=== PATIENT | female | born 1980 | race Caucasian/White ===

== ENCOUNTER 2017-08-04 17:07 | Emergency (ER) | payer MEDICAID ==
[~2017-08-04] VITALS: Ht 172.7 cm; Wt 122.0 kg
[~2017-08-04 17:07] MED LIST: CLON-528 PO; HYDR-565 PO; LITH600C PO; ONDA4TAB59 PO; ONDA8TAB9 PO
[2017-08-04 17:49] LABS: BASOPHILS # (AUTO) 0.2 X10'3 (0-0.2); EOSINOPHILS # (AUTO) 0.3 X10'3 (0-0.9); EOSINOPHILS % (AUTO) 2.2 % (0-6); HEMATOCRIT 40.6 % (35.0-45.0); HEMOGLOBIN 13.9 g/dl (12.0-16.0); LYMPHOCYTES # (AUTO) 3.6 X10'3 (1.1-4.8); LYMPHOCYTES % (AUTO) 24.3 % (21-51); MEAN CORPUSCULAR HEMOGLOBIN 30.4 PG (27.0-31.0); MEAN CORPUSCULAR HGB CONC 34.2 % (33.0-36.5); MEAN CORPUSCULAR VOLUME 88.9 FL (78-98); MEAN PLATELET VOLUME 8.2 FL (7.4-10.4); MONOCYTES # (AUTO) 0.8 X10'3 (0-0.9); MONOCYTES % (AUTO) 5.1 % (2-12); NEUTROPHILS # (AUTO) 9.8 X10'3 (1.8-7.7); NEUTROPHILS % (AUTO) 67.4 % (42-75); PLATELET COUNT 331 X10'3 (140-440); RED BLOOD COUNT 4.57 X10'6 (4.20-5.60); RED CELL DISTRIBUTION WIDTH 14.3 % (11.5-14.5); WHITE BLOOD COUNT 14.6 X10'3 (4.5-11.0)
[2017-08-04 17:51] LABS: PROTHROMBIN TIME 9.9 SECONDS (9.0-12.0)
[2017-08-04 17:59] LABS: ALANINE AMINOTRANSFERASE 23 U/L (12-78); ALBUMIN 2.3 G/DL (3.4-5.0); ALBUMIN/GLOBULIN RATIO 0.4 (1.1-1.5); ALKALINE PHOSPHATASE 95 IU/L (46-116); ANION GAP 10 (8-16); ASPARTATE AMINO TRANSFERASE 15 U/L (10-37); BILIRUBIN,TOTAL 0.2 MG/DL (0.1-1.0); BLOOD UREA NITROGEN 11 MG/DL (7-18); BUN/CREATININE RATIO 12.9 (6.6-38.0); CHLORIDE 104 MMOL/L (99-107); CREATININE 0.85 MG/DL (0.40-0.90); GLUCOSE 88 MG/DL (70-104); SODIUM 139 MMOL/L (135-145); TOTAL CARBON DIOXIDE 24.8 MMOL/L (24-32); TOTAL PROTEIN 7.5 G/DL (6.4-8.2); eGFR 76 ML/MIN
[2017-08-04] MEDS ORDERED: normal saline 1000ml 1,000 ML IVB ONE (20:11)
[2017-08-04] MEDS ORDERED: ondansetron/PF 4mg/2ml inj IV ONE ×2 (20:15→23:30)
[2017-08-04] MEDS ORDERED: ketorolac trometh. 30mg/ml inj. IV ONE (20:15)
[2017-08-04] MEDS ORDERED: fentaNYL/PF 50MCG/1 ML 2ML syringe IV ONE (20:45)
[2017-08-04 21:39] LABS: CLARITY,URINE Clear (Clear); COLOR,URINE Yellow (Yellow); GLUCOSE, URINE Negative (Neg); KETONES,URINE Negative (Neg); LEUKOCYTE ESTERASE ,URINE Negative (Neg); NITRITES, URINE Negative (Neg); OCCULT BLOOD,URINE Negative (Neg); PH,URINE 5.5 (4.8-8.0); PROTEIN,URINE Negative (Neg)
[2017-08-04 21:40] LABS: UA COLLECTION TYPE CLN CATCH MIDSTREAM
[2017-08-04 22:31] VITALS: BP 117/69
[2017-08-04] MEDS ORDERED: HYDROcodone/acetaminophen 10/325mg tab PO ONE (23:05)
[2017-08-04] MEDS ORDERED: HYDR-565 PO (23:08)
== END 2017-08-04 23:41 | disposition home or self-care (01) ==
LOC: ER 17:08
DX: R10.84 Generalized abdominal pain (principal); R11.2 Nausea with vomiting, unspecified; K21.9 Gastro-esophageal reflux disease without esophagitis; Z90.49 Acquired absence of other specified parts of digestive tract; Z98.890 Other specified postprocedural states; Z88.8 Allergy status to other drugs, medicaments and biological substances; Z79.899 Other long term (current) drug therapy
CPT/HCPCS: 36415; 74176; 80053; 81003; 85025; 85610; 93005; 96361; 96374; 96375; 96376; 99285; J1885; J2405; J3010; J7030

== ENCOUNTER 2018-01-08 01:32 | Emergency (ER) | payer MEDICAID ==
[~2018-01-08] VITALS: Ht 172.7 cm; Wt 127.0 kg
[~2018-01-08 01:32] MED LIST changes: +HYDR-4353 PO; -HYDR-565 PO
[2018-01-08 01:43] VITALS: BP 145/94
[2018-01-08] MEDS ORDERED: SULF1TAB49 PO (03:02)
[2018-01-08] MEDS ORDERED: HYDR-4383 PO (03:04)
== END 2018-01-08 03:22 | disposition home or self-care (01) ==
LOC: ER 01:33
DX: N76.4 Abscess of vulva (principal); K21.9 Gastro-esophageal reflux disease without esophagitis; Z90.49 Acquired absence of other specified parts of digestive tract; Z90.89 Acquired absence of other organs; Z88.1 Allergy status to other antibiotic agents; Z79.899 Other long term (current) drug therapy
CPT/HCPCS: 56405; 99284

== ENCOUNTER 2018-04-13 19:50 | Inpatient (IN) | payer MEDICAID ==
[~2018-04-13] VITALS: Ht 172.7 cm; Wt 125.0 kg
[~2018-04-13 19:50] MED LIST changes: +HYDR-4383 PO
[2018-04-13 21:22] LABS: ALANINE AMINOTRANSFERASE 21 U/L (12-78); ALBUMIN 3.2 G/DL (3.4-5.0); ALBUMIN/GLOBULIN RATIO 0.8 (1.1-1.5); ALKALINE PHOSPHATASE 86 IU/L (46-116); ANION GAP 9 (8-16); ASPARTATE AMINO TRANSFERASE 14 U/L (10-37); BILIRUBIN,TOTAL 0.2 MG/DL (0.1-1.0); BLOOD UREA NITROGEN 12 MG/DL (7-18); BUN/CREATININE RATIO 16.7 (6.6-38.0); CALCIUM 8.9 MG/DL (8.5-10.1); CHLORIDE 104 MMOL/L (99-107); CREATININE 0.72 MG/DL (0.40-0.90); GLUCOSE 91 MG/DL (70-104); POTASSIUM 3.9 MMOL/L (3.5-5.1); SODIUM 137 MMOL/L (135-145); TOTAL CARBON DIOXIDE 23.8 MMOL/L (24-32); TOTAL PROTEIN 7.1 G/DL (6.4-8.2); eGFR > 90 ML/MIN
[2018-04-13 21:29] LABS: BASOPHILS # (AUTO) 0.1 X10'3 (0-0.2); BASOPHILS % (AUTO) 0.9 % (0-1); EOSINOPHILS # (AUTO) 0.3 X10'3 (0-0.9); EOSINOPHILS % (AUTO) 2.1 % (0-6); HEMATOCRIT 37.9 % (35.0-45.0); HEMOGLOBIN 12.4 g/dl (12.0-16.0); LYMPHOCYTES # (AUTO) 2.8 X10'3 (1.1-4.8); LYMPHOCYTES % (AUTO) 18.7 % (21-51); MEAN CORPUSCULAR HEMOGLOBIN 28.8 PG (27.0-31.0); MEAN CORPUSCULAR HGB CONC 32.8 g/dL (33.0-36.5); MEAN CORPUSCULAR VOLUME 87.9 FL (78-98); MEAN PLATELET VOLUME 8.7 FL (7.4-10.4); MONOCYTES # (AUTO) 0.8 X10'3 (0-0.9); MONOCYTES % (AUTO) 5.1 % (2-12); NEUTROPHILS # (AUTO) 10.9 X10'3 (1.8-7.7); NEUTROPHILS % (AUTO) 73.2 % (42-75); PLATELET COUNT 289 X10'3 (140-440); RED BLOOD COUNT 4.31 X10'6 (4.20-5.60); RED CELL DISTRIBUTION WIDTH 16.1 % (11.5-14.5); WHITE BLOOD COUNT 14.8 X10'3 (4.5-11.0)
[2018-04-13] MEDS ORDERED: ondansetron/PF 4mg/2ml inj IV ONE ×2 (21:55→23:25)
[2018-04-13] MEDS ORDERED: ketorolac trometh. 30mg/ml inj. IV ONE (21:55)
[2018-04-13] MEDS ORDERED: normal saline 1000ML IV soln IVB ONE (21:55)
[2018-04-13 22:06] LABS: LIPASE 100 U/L (73-393)
[2018-04-13 22:20] LABS: PROTHROMBIN TIME 9.9 SECONDS (9.0-12.0)
[2018-04-13] MEDS: morphine 4 MG/ML inj SYRINge IV PRN ×2 (22:20→22:57)
[2018-04-13] MEDS ORDERED: cefepime 2gm inj IV STA (23:21)
[2018-04-13] MEDS ORDERED: morphine 4 MG/ML inj SYRINge IV PRN (23:25)
[2018-04-13] MEDS ORDERED: piperacillin/tazo 3.375gm/50ml 50 ML IV ONE (23:25)
[2018-04-13] MEDS ORDERED: cefepime 2g/NS 100ml ADVANTAGE 100 ML IV ONE (23:55)
[2018-04-14] MEDS ORDERED: HYDROmorphone 1 mg/ml syringe IV ONE
[2018-04-14] MEDS ORDERED: metroNIDAZOLE-Flagyl 500mg/NS 100 ML IV STA
[2018-04-14] MEDS ORDERED: NO HOME MEDS (00:06)
--- NOTE | 2018-04-14 00:25 | NUR ---
DR RAHMAN AT BEDSIDE WITH PT
[2018-04-14] MEDS ORDERED: mag hydrox/Alum hydrox/simeth 30ml oral suspension PO PRN (00:50)
[2018-04-14] MEDS ORDERED: HYDROmorphone inj. 0.5 MG/0.5 ML DISP.SYRIN IV PRN (00:50)
[2018-04-14] MEDS ORDERED: ondansetron/PF 4mg/2ml inj IV PRN (00:50)
[2018-04-14] MEDS ORDERED: acetaminophen 325mg tablet PO PRN (00:50)
[2018-04-14] MEDS ORDERED: magnesium hydroxide 30ml (MOM) UD suspension PO PRN (00:50)
[2018-04-14] MEDS: normal saline 1000ml 1,000 ML IV SCH ×2 (00:50→12:14)
[2018-04-14 01:03] LABS: CLARITY,URINE CLEAR (Clear); COLOR,URINE YELLOW (Yellow); GLUCOSE, URINE NEGATIVE (Neg); KETONES,URINE NEGATIVE (Neg); LEUKOCYTE ESTERASE ,URINE NEGATIVE (Neg); NITRITES, URINE NEGATIVE (Neg); OCCULT BLOOD,URINE NEGATIVE (Neg); PROTEIN,URINE NEGATIVE (Neg); URINE HCG NEGATIVE (NEG); UROBILINOGEN,URINE 0.2 E.U/dL (0.2-1.0)
[2018-04-14 01:04] LABS: UA COLLECTION TYPE CLN CATCH MIDSTREAM
[2018-04-14 02:20] VITALS: BP 103/49
[2018-04-14] MEDS: HYDROmorphone 1 mg/ml syringe IV PRN ×3 (03:55→13:56)
[2018-04-14 06:00] VITALS: BP 104/54
--- NOTE | 2018-04-14 06:00 | NUR ---
Patient in room [facility]. I have received report from Inocencia Chambers RN and had the opportunity to ask questions and assume patient care.
--- NOTE | 2018-04-14 06:26 | NUR ---
Problems reprioritized. Patient report given, questions answered & plan of care reviewed with LEISA Sparrow.
[2018-04-14] MEDS ORDERED: metroNIDAZOLE-Flagyl 500mg/NS 100 ML IV SCH (08:00)
[2018-04-14] MEDS ORDERED: heparin, porcine 5000 units/ml vial SQ SCH (08:00)
[2018-04-14] MEDS ORDERED: cefepime 1GM/NS ADD-VANTAGE 100 ML IV SCH (08:00)
[2018-04-14 09:04] LABS: BASOPHILS # (AUTO) 0.1 X10'3 (0-0.2); BASOPHILS % (AUTO) 0.9 % (0-1); EOSINOPHILS # (AUTO) 0.2 X10'3 (0-0.9); EOSINOPHILS % (AUTO) 2.8 % (0-6); HEMATOCRIT 34.7 % (35.0-45.0); HEMOGLOBIN 11.5 g/dl (12.0-16.0); LYMPHOCYTES # (AUTO) 1.7 X10'3 (1.1-4.8); LYMPHOCYTES % (AUTO) 23.3 % (21-51); MEAN CORPUSCULAR HEMOGLOBIN 29.6 PG (27.0-31.0); MEAN CORPUSCULAR HGB CONC 33.3 g/dL (33.0-36.5); MEAN CORPUSCULAR VOLUME 88.9 FL (78-98); MEAN PLATELET VOLUME 8.1 FL (7.4-10.4); MONOCYTES # (AUTO) 0.5 X10'3 (0-0.9); MONOCYTES % (AUTO) 7.1 % (2-12); NEUTROPHILS # (AUTO) 4.7 X10'3 (1.8-7.7); NEUTROPHILS % (AUTO) 65.9 % (42-75); PLATELET COUNT 235 X10'3 (140-440); RED CELL DISTRIBUTION WIDTH 15.7 % (11.5-14.5); WHITE BLOOD COUNT 7.2 X10'3 (4.5-11.0)
[2018-04-14 09:11] LABS: ALBUMIN 2.7 G/DL (3.4-5.0); ANION GAP 6 (8-16); BLOOD UREA NITROGEN 13 MG/DL (7-18); CALCIUM 7.8 MG/DL (8.5-10.1); CHLORIDE 108 MMOL/L (99-107); CREATININE 0.81 MG/DL (0.40-0.90); GLUCOSE 92 MG/DL (70-104); POTASSIUM 3.7 MMOL/L (3.5-5.1); SODIUM 142 MMOL/L (135-145); TOTAL CARBON DIOXIDE 27.8 MMOL/L (24-32); eGFR 80 ML/MIN
[2018-04-14 10:00] VITALS: BP 114/65
[2018-04-14] MEDS ORDERED: METR-159 PO (12:28)
[2018-04-14] MEDS ORDERED: HYDR-4353 PO (12:28)
[2018-04-14] MEDS ORDERED: LEVO500T2 PO (12:28)
--- NOTE | 2018-04-14 13:08 | NUR ---
PAGER ID: [phone] MESSAGE: Kyara [employer], # [id number], Ms. Corona in [phone] is requesting to speak with you. Thank you
[2018-04-14] MEDS ORDERED: ONDA4TAB6 PO (13:17)
[2018-04-14] MEDS ORDERED: lactobacillus rhamnosus 10,000 MMU CELLS/CAPSULE PO SCH (20:00)
== END 2018-04-14 14:45 | disposition home or self-care (01) | DRG 720 ==
LOC: ER 19:50 → ED HOLD 04-14 00:50 → ORTHO 4S 04-14 02:20
PROVIDERS: ADMIT Internal Medicine; ATTEND Internal Medicine
DX: A41.9 Sepsis, unspecified organism (principal); K57.32 Diverticulitis of large intestine without perforation or abscess without bleeding; K76.0 Fatty (change of) liver, not elsewhere classified; E66.9 Obesity, unspecified; K21.9 Gastro-esophageal reflux disease without esophagitis; L97.419 Non-pressure chronic ulcer of right heel and midfoot with unspecified severity; N83.202 Unspecified ovarian cyst, left side; Z68.41 Body mass index [BMI] 40.0-44.9, adult; Z90.49 Acquired absence of other specified parts of digestive tract; Z88.8 Allergy status to other drugs, medicaments and biological substances
CPT/HCPCS: 36415; 74176; 80048; 80053; 81003; 81025; 83690; 85025; 85610; 87040; 87070; 87186; 96374; 96375; 99285; G0378; J0692; J1170; J1644; J1885; J2270; J2405; J2543; J3490; J7030

== ENCOUNTER 2018-09-06 12:00 | Emergency (ER) | payer MEDICAID ==
[~2018-09-06] VITALS: Ht 172.7 cm; Wt 124.0 kg
[~2018-09-06 12:00] MED LIST changes: -CLON-528 PO; -HYDR-4353 PO; -HYDR-4383 PO; -LITH600C PO; +NO HOME MEDS; -ONDA4TAB59 PO; +ONDA4TAB6 PO; -ONDA8TAB9 PO
[2018-09-06] MEDS ORDERED: morphine 4 MG/ML inj SYRINge IV ONE (12:55)
[2018-09-06] MEDS ORDERED: normal saline 1000ML IV soln IVB ONE (12:55)
[2018-09-06] MEDS ORDERED: ondansetron/PF 4mg/2ml inj IV ONE (12:55)
[2018-09-06 13:30] LABS: BASOPHILS % (AUTO) 0.2 % (0-1); EOSINOPHILS % (AUTO) 0.4 % (0-6); HEMATOCRIT 43.5 % (35.0-45.0); HEMOGLOBIN 14.6 g/dl (12.0-16.0); LYMPHOCYTES # (AUTO) 0.5 X10'3 (1.1-4.8); LYMPHOCYTES % (AUTO) 4.6 % (21-51); MEAN CORPUSCULAR HEMOGLOBIN 30.5 PG (27.0-31.0); MEAN CORPUSCULAR HGB CONC 33.6 g/dL (33.0-36.5); MEAN CORPUSCULAR VOLUME 90.8 FL (78-98); MEAN PLATELET VOLUME 8.4 FL (7.4-10.4); MONOCYTES # (AUTO) 0.6 X10'3 (0-0.9); MONOCYTES % (AUTO) 5.4 % (2-12); NEUTROPHILS # (AUTO) 9.4 X10'3 (1.8-7.7); NEUTROPHILS % (AUTO) 89.4 % (42-75); PLATELET COUNT 231 X10'3 (140-440); RED BLOOD COUNT 4.79 X10'6 (4.20-5.60); RED CELL DISTRIBUTION WIDTH 16.1 % (11.5-14.5); WHITE BLOOD COUNT 10.5 X10'3 (4.5-11.0)
[2018-09-06] MEDS ORDERED: fentaNYL/PF 50MCG/1 ML 2ML syringe IV ONE (13:40)
[2018-09-06 14:33] LABS: ALANINE AMINOTRANSFERASE 164 U/L (12-78); ALBUMIN 3.3 G/DL (3.4-5.0); ALBUMIN/GLOBULIN RATIO 0.8 (1.1-1.5); ALKALINE PHOSPHATASE 140 IU/L (46-116); ANION GAP 8 (8-16); ASPARTATE AMINO TRANSFERASE 131 U/L (10-37); BILIRUBIN,TOTAL 0.7 MG/DL (0.1-1.0); BLOOD UREA NITROGEN 10 MG/DL (7-18); BUN/CREATININE RATIO 10.5 (6.6-38.0); CALCIUM 9.1 MG/DL (8.5-10.1); CHLORIDE 102 MMOL/L (99-107); CREATININE 0.95 MG/DL (0.40-0.90); GLUCOSE 109 MG/DL (70-104); LIPASE < 50 U/L (73-393); POTASSIUM 4.3 MMOL/L (3.5-5.1); SODIUM 135 MMOL/L (135-145); TOTAL PROTEIN 7.7 G/DL (6.4-8.2); eGFR 66 ML/MIN
[2018-09-06 14:41] LABS: CLARITY,URINE CLOUDY (Clear); COLOR,URINE AMBER (Yellow); GLUCOSE, URINE NEGATIVE (Neg); KETONES,URINE >=80 mg/dl (Neg); LEUKOCYTE ESTERASE ,URINE NEGATIVE (Neg); OCCULT BLOOD,URINE NEGATIVE (Neg); PROTEIN,URINE 100 mg/dl (Neg); UROBILINOGEN,URINE >=8.0 E.U/dL (0.2-1.0)
[2018-09-06 14:42] LABS: NITRITES, URINE NEGATIVE (Neg); UA COLLECTION TYPE CLN CATCH MIDSTREAM
[2018-09-06 14:47] LABS: MUCUS STRANDS MANY /LPF (Neg); SQUAMOUS EPITHELIAL CELL,UR MANY /LPF (FEW)
[2018-09-06 14:48] LABS: BACTERIA,URINE 2+ /HPF (Neg); HYALINE CASTS 0-3 /LPF (NEGATIVE)
[2018-09-06 14:51] LABS: URINE HCG NEGATIVE (NEG)
--- NOTE | 2018-09-06 15:00 | NUR ---
PT TO CT VIA WHEELCHAIR.
[2018-09-06] MEDS ORDERED: iohexol 300mg/ml 100ml inj. ONE (15:02)
[2018-09-06] MEDS ORDERED: ketorolac trometh. 30mg/ml inj. IV ONE (15:05)
--- NOTE | 2018-09-06 15:13 | NUR ---
PT IS BACK FROM CT
[2018-09-06 15:48] VITALS: BP 130/73
[2018-09-06] MEDS ORDERED: diphenhydrAMINE 50 mg/ml inj IV ONE (16:50)
[2018-09-06] MEDS ORDERED: metoclopramide 5 mg/ml inj IV ONE (16:50)
[2018-09-06] MEDS ORDERED: METO-292 PO (17:38)
[2018-09-06] MEDS ORDERED: DIPH25CA83 PO (17:38)
== END 2018-09-06 17:47 | disposition home or self-care (01) ==
LOC: ER 12:01
DX: R10.84 Generalized abdominal pain (principal); R11.2 Nausea with vomiting, unspecified; R50.9 Fever, unspecified; K21.9 Gastro-esophageal reflux disease without esophagitis; F31.9 Bipolar disorder, unspecified; Z90.49 Acquired absence of other specified parts of digestive tract; Z98.890 Other specified postprocedural states; Z90.89 Acquired absence of other organs; Z88.1 Allergy status to other antibiotic agents; Z79.899 Other long term (current) drug therapy
CPT/HCPCS: 36415; 74177; 80053; 81001; 81025; 82553; 83690; 85025; 96361; 96374; 96375; 99284; J1200; J1885; J2270; J2405; J2765; J3010; J7030; Q9967

== ENCOUNTER 2021-03-10 03:42 | Emergency (ER) | payer MEDICAID ==
[~2021-03-10] VITALS: Ht 172.7 cm; Wt 116.0 kg
[~2021-03-10 03:42] MED LIST changes: +DIPH25CA83 PO; +METO-292 PO
[2021-03-10 04:05] VITALS: BP 128/81
[2021-03-10] MEDS ORDERED: CEPH-585 PO (06:43)
[2021-03-10] MEDS ORDERED: DOXY-1 PO (06:44)
[2021-03-10] MEDS ORDERED: DOXYCYCLINE 100MG CAPSULE PO STA (06:45)
== END 2021-03-10 07:43 | disposition home or self-care (01) ==
LOC: ER 03:43
DX: R59.0 Localized enlarged lymph nodes (principal); L03.115 Cellulitis of right lower limb; K21.9 Gastro-esophageal reflux disease without esophagitis; Z90.49 Acquired absence of other specified parts of digestive tract; Z98.890 Other specified postprocedural states; Z88.0 Allergy status to penicillin
CPT/HCPCS: 73590; 93971; 99284

== ENCOUNTER 2023-10-13 19:12 | Emergency (ER) | payer BC, MEDICAID, OTHER ==
[~2023-10-13] VITALS: Ht 170.2 cm; Wt 121.8 kg
[2023-10-13 19:24] VITALS: TEMP 99
[2023-10-13 20:05] LABS: BASOPHILS # (AUTO) 0.1 X10'3 (0-0.2); BASOPHILS % (AUTO) 0.6 % (0-1); EOSINOPHILS # (AUTO) 0.1 X10'3 (0-0.9); EOSINOPHILS % (AUTO) 1.1 % (0-6); HEMATOCRIT 41.4 % (35.0-45.0); HEMOGLOBIN 13.7 g/dl (12.0-16.0); LYMPHOCYTES # (AUTO) 2.1 X10'3 (1.1-4.8); LYMPHOCYTES % (AUTO) 19.7 % (21-51); MEAN CORPUSCULAR HEMOGLOBIN 29.1 PG (27.0-31.0); MEAN CORPUSCULAR HGB CONC 33.2 g/dL (33.0-36.5); MEAN CORPUSCULAR VOLUME 87.7 FL (78-98); MEAN PLATELET VOLUME 8.1 FL (7.4-10.4); MONOCYTES # (AUTO) 0.5 X10'3 (0-0.9); MONOCYTES % (AUTO) 4.7 % (2-12); NEUTROPHILS # (AUTO) 7.8 X10'3 (1.8-7.7); NEUTROPHILS % (AUTO) 73.9 % (42-75); PLATELET COUNT 300 X10'3 (140-440); RED BLOOD COUNT 4.72 X10'6 (4.20-5.60); RED CELL DISTRIBUTION WIDTH 15.8 % (11.5-14.5); WHITE BLOOD COUNT 10.5 X10'3 (4.5-11.0)
[2023-10-13 20:13] LABS: ALANINE AMINOTRANSFERASE 23 U/L (12-78); ALBUMIN 3.6 G/DL (3.4-5.0); ALBUMIN/GLOBULIN RATIO 0.9 (1.1-1.5); ALKALINE PHOSPHATASE 82 IU/L (46-116); ANION GAP 9 (8-16); ASPARTATE AMINO TRANSFERASE 15 U/L (10-37); BILIRUBIN,TOTAL 0.3 MG/DL (0.1-1.0); BLOOD UREA NITROGEN 12 MG/DL (7-18); BUN/CREATININE RATIO 13.5 (10.0-20.0); CALCIUM 9.1 MG/DL (8.5-10.1); CHLORIDE 104 MMOL/L (99-107); CREATININE 0.89 MG/DL (0.40-0.90); GLUCOSE 129 MG/DL (70-104); POTASSIUM 3.8 MMOL/L (3.5-5.1); SODIUM 141 MMOL/L (135-145); TOTAL CARBON DIOXIDE 27.9 MMOL/L (24-32); TOTAL PROTEIN 7.4 G/DL (6.4-8.2); eCRCL 79 ML/MIN; eGFR 69 ML/MIN
[2023-10-13] MEDS ORDERED: HYDR-3965 PO (20:55)
[2023-10-13] MEDS ORDERED: [UNRECOGNIZED DRUG - CODE] PO (20:55)
[2023-10-13] MEDS: CefTRIAXone 1000mg IM Kit (w/lidocaine diluent) IM STA (21:11)
[2023-10-13] MEDS: clindamycin 300mg/D5W 50mL 50 ML IV STA (21:12)
[2023-10-13] MEDS: ketorolac trometh 30MG/ML vial 30 MG/ML VIAL IV ONE (21:12)
[2023-10-13] MEDS ORDERED: DIPH25CA83 PO (22:21)
[2023-10-13] MEDS ORDERED: METO-292 PO (22:21)
[2023-10-13 22:30] VITALS: BP 108/67; PULSE 71; RESP 16; O2SAT 95
== END 2023-10-13 22:33 | disposition home or self-care (01) ==
LOC: ER 19:13
DX: L02.611 Cutaneous abscess of right foot (principal); K21.9 Gastro-esophageal reflux disease without esophagitis; F31.9 Bipolar disorder, unspecified; Z98.890 Other specified postprocedural states; Z90.49 Acquired absence of other specified parts of digestive tract; Z79.2 Long term (current) use of antibiotics; Z79.899 Other long term (current) drug therapy; Z88.1 Allergy status to other antibiotic agents
CPT/HCPCS: 36415; 73610; 80053; 85025; 96365; 96372; 96375; 99284; J0696; J1885; J3490